=== PATIENT | male | born 1950 | race Caucasian/White ===

== ENCOUNTER 2022-04-03 14:39 | Inpatient (IN) | payer MEDICARE, BC, OTHER ==
[~2022-04-03] VITALS: Ht 167.6 cm; Wt 71.1 kg
[2022-04-03 14:30] VITALS: BP 168/78
[2022-04-03] MEDS ORDERED: MIRALAX *UNIT DOSE* 17GM PACKET PO PRN (14:40)
[2022-04-03] MEDS ORDERED: ACETAMINOPHEN 325 MG/10.15 ML UDC PO PRN (14:40)
[2022-04-03] MEDS ORDERED: LIDOCAINE 5% OINT 30GM TUBE TOP PRN (16:25)
[2022-04-03] MEDS ORDERED: CLOP75TA2 PO (17:05)
[2022-04-03] MEDS ORDERED: GLIP5TAB8 PO (17:05)
[2022-04-03] MEDS ORDERED: ASPI81CH48 PO (17:05)
[2022-04-03] MEDS ORDERED: ATOR40TA75 PO (17:05)
[2022-04-03] MEDS ORDERED: LIAL1.2T PO (17:05)
[2022-04-03] MEDS ORDERED: MESA50SU PR (17:05)
[2022-04-03] MEDS ORDERED: TAMS1CAP17 PO (17:05)
[2022-04-03] MEDS ORDERED: LOSA100T45 PO (17:05)
[2022-04-03] MEDS ORDERED: TRAD5TAB PO (17:05)
[2022-04-03] MEDS ORDERED: ATEN50TA2 PO (17:05)
[2022-04-03] MEDS ORDERED: VITMTA PO (17:05)
[2022-04-03] MEDS ORDERED: ACET1TAB55 PO (17:05)
[2022-04-03] MEDS ORDERED: KEPP1TAB PO (17:05)
[2022-04-03] MEDS ORDERED: VICT18IN SC (17:05)
[2022-04-03] MEDS ORDERED: DIPH25CA32 PO (17:05)
[2022-04-03] MEDS ORDERED: HOME MED LIST COMPLETE! XX SCH (17:10)
[2022-04-03 18:23] LABS: APPEARANCE, URINE MANUAL CLEAR (CLEAR); COLOR, URINE MANUAL LT YELLOW (YELLOW)
[2022-04-03 18:24] LABS: BILIRUBIN, URINE MANUAL NEGATIVE (NEGATIVE); BLOOD URINE MANUAL NEGATIVE (NEGATIVE); GLUCOSE, URINE (UA) MANUAL 1+(100 MG/DL) mg/dL (NEGATIVE); KETONE, URINE MANUAL NEGATIVE (NEGATIVE); LEUKOCYTE ESTERASE, URINE MAN NEGATIVE (NEGATIVE); NITRITE, URINE MANUAL NEGATIVE (NEGATIVE); PROTEIN, URINE MANUAL NEGATIVE (NEGATIVE); SPECIFIC GRAVITY,URINE MANUAL 1.005 (1.002-1.035); UROBILINOGEN, URINE MANUAL NORMAL (NORMAL)
[2022-04-03 20:27] VITALS: BP 138/78
[2022-04-03] MEDS ORDERED: diphenhydrAMINE 25MG CAP PO SCH (21:00)
[2022-04-03] MEDS ORDERED: MESALAMINE 1,000 MG SUPP PR SCH (21:00)
[2022-04-03] MEDS ORDERED: GLUCAGON INJ 1MG VIAL SC PRN (21:55)
[2022-04-03] MEDS ORDERED: DEXTROSE 50% 50 ML SYRINGE IV PRN (21:55)
[2022-04-03] MEDS ORDERED: GLUCOSE 4GM CHEW TABLET PO PRN (21:55)
[2022-04-03] MEDS: levETIRAcetam 250MG TABLET (KEPPRA) PO SCH (22:45)
[2022-04-03] MEDS: INSULIN LISPRO (NovoLOG) PER UNIT SC SCH (22:47)
[2022-04-04 05:51] VITALS: BP 168/74
[2022-04-04] MEDS: CLOPIDOGREL 75 MG TAB PO SCH (09:02)
[2022-04-04] MEDS: TAMSULOSIN 0.4 MG CAP PO SCH (09:02)
[2022-04-04] MEDS: levETIRAcetam 250MG TABLET (KEPPRA) PO SCH ×2 (09:02→20:11)
[2022-04-04] MEDS: PANTOPRAZOLE 40MG TAB (PROTONIX) PO SCH (09:02)
[2022-04-04] MEDS: LOSARTAN 50MG TABLET PO SCH (09:02)
[2022-04-04] MEDS: MULTIVITAMINS/MINERALS THERAP 1 TAB PO SCH (09:03)
[2022-04-04] MEDS: INSULIN LISPRO (NovoLOG) PER UNIT SC SCH ×5 (09:03→20:10)
[2022-04-04] MEDS: ATORVASTATIN 20 MG TAB PO SCH (09:03)
[2022-04-04] MEDS: ASPIRIN 81 MG CHEW TABLET PO SCH (09:03)
[2022-04-04] MEDS: atenoloL 50 MG TAB PO SCH (09:03)
[2022-04-04] MEDS: glipiZIDE (GLUCOTROL) 5 MG TAB PO SCH ×2 (09:04→17:33)
[2022-04-04 09:43] LABS: BASO # 0.2 10^3/uL (0.0-0.2); BASO % 1.1 % (0.0-1.0); EOS # 0.9 10^3/uL (0.0-0.5); EOS % 5.3 % (0.0-3.0); HEMATOCRIT 45.5 % (42.0-52.0); HEMOGLOBIN 14.3 g/dl (13.5-17.5); LYMPH # 3.3 10^3/uL (1.5-5.0); LYMPH % 19.9 % (24.0-44.0); MEAN CORPUSCULAR HEMOGLOBIN 29.8 pg (27.0-33.0); MEAN CORPUSCULAR HGB CONC 31.4 g/dl (32.0-36.5); MEAN CORPUSCULAR VOLUME 94.8 fl (80.0-96.0); MONO % 9.9 % (2.0-8.0); NEUTROPHILS % 60.4 % (36.0-66.0); PLATELET COUNT, AUTOMATED 459 10^3/uL (150-450); WHITE BLOOD COUNT 16.6 10^3/uL (4.0-10.0)
[2022-04-04 09:58] LABS: HEMOGLOBIN A1c 6.9 %
[2022-04-04 10:36] LABS: ALBUMIN 3.2 GM/DL (3.2-5.2); ALT/SGPT 195 U/L (12-78); BILIRUBIN,TOTAL 0.7 MG/DL (0.2-1.0); BLOOD UREA NITROGEN 18 MG/DL (7-18); CALCIUM LEVEL 9.2 MG/DL (8.8-10.2); CARBON DIOXIDE LEVEL 29 MEQ/L (21-32); CHLORIDE LEVEL 102 MEQ/L (98-107); CREATININE FOR GFR 0.92 MG/DL (0.70-1.30); GLOMERULAR FILTRATION RATE > 60.0 (>49); GLUCOSE, FASTING 143 MG/DL (70-100); MAGNESIUM LEVEL 2.1 MG/DL (1.8-2.4); POTASSIUM SERUM 4.1 MEQ/L (3.5-5.1); SODIUM LEVEL 136 MEQ/L (136-145); TOTAL PROTEIN 7.1 GM/DL (6.4-8.2)
[2022-04-04 11:14] LABS: MONO # 1.6 10^3/uL (0.0-0.8)
[2022-04-04 13:09] LABS: HEPATITIS B SURFACE ANTIGEN NEGATIVE (NEGATIVE)
[2022-04-04 13:19] LABS: HEPATITIS C VIRUS ABY INDEX 0.1 INDEX (<0.8)
[2022-04-04 13:20] LABS: HEPATITIS B CORE ANTIBODY IGM NEGATIVE (NEGATIVE)
[2022-04-04 14:00] VITALS: BP 160/78
[2022-04-04] MEDS: MESALAMINE 400 MG CAPSULE DELAYED RELEASE (DELZICOL) PO SCH (17:33)
[2022-04-04 20:00] VITALS: BP 150/82
[2022-04-04] MEDS: diphenhydrAMINE 25MG CAP PO SCH (20:11)
[2022-04-05] MEDS: LIDOCAINE 2% 5ML JELLY UROJET TOP PRN (00:32)
[2022-04-05 06:00] VITALS: BP 140/82
[2022-04-05] MEDS: glipiZIDE (GLUCOTROL) 5 MG TAB PO SCH ×2 (09:32→17:35)
[2022-04-05] MEDS: ASPIRIN 81 MG CHEW TABLET PO SCH (09:32)
[2022-04-05] MEDS: ATORVASTATIN 20 MG TAB PO SCH (09:32)
[2022-04-05] MEDS: CLOPIDOGREL 75 MG TAB PO SCH (09:32)
[2022-04-05] MEDS: TAMSULOSIN 0.4 MG CAP PO SCH (09:33)
[2022-04-05] MEDS: MULTIVITAMINS/MINERALS THERAP 1 TAB PO SCH (09:33)
[2022-04-05] MEDS: LOSARTAN 50MG TABLET PO SCH (09:33)
[2022-04-05] MEDS: PANTOPRAZOLE 40MG TAB (PROTONIX) PO SCH (09:33)
[2022-04-05] MEDS: atenoloL 50 MG TAB PO SCH (09:33)
[2022-04-05] MEDS: levETIRAcetam 250MG TABLET (KEPPRA) PO SCH ×2 (09:33→20:16)
[2022-04-05] MEDS: INSULIN LISPRO (NovoLOG) PER UNIT SC SCH ×4 (09:35→20:17)
[2022-04-05 14:00] VITALS: BP 163/76
[2022-04-05] MEDS: MESALAMINE 400 MG CAPSULE DELAYED RELEASE (DELZICOL) PO SCH (17:35)
[2022-04-05 20:00] VITALS: BP 138/74
[2022-04-05] MEDS: diphenhydrAMINE 25MG CAP PO SCH (20:16)
[2022-04-06 06:00] VITALS: BP 150/82
[2022-04-06 06:17] LABS: HEMATOCRIT 41.2 % (42.0-52.0); HEMOGLOBIN 13.5 g/dl (13.5-17.5); MEAN CORPUSCULAR HEMOGLOBIN 30.5 pg (27.0-33.0); MEAN CORPUSCULAR HGB CONC 32.8 g/dl (32.0-36.5); PLATELET COUNT, AUTOMATED 482 10^3/uL (150-450); RED BLOOD COUNT 4.43 10^6/uL (4.30-6.10); WHITE BLOOD COUNT 16.6 10^3/uL (4.0-10.0)
[2022-04-06 06:53] LABS: ALBUMIN 3.1 GM/DL (3.2-5.2); ALT/SGPT 130 U/L (12-78); BILIRUBIN,TOTAL 0.6 MG/DL (0.2-1.0); BLOOD UREA NITROGEN 16 MG/DL (7-18); CALCIUM LEVEL 9.3 MG/DL (8.8-10.2); CARBON DIOXIDE LEVEL 26 MEQ/L (21-32); CHLORIDE LEVEL 104 MEQ/L (98-107); CREATININE FOR GFR 0.93 MG/DL (0.70-1.30); GLOMERULAR FILTRATION RATE > 60.0 (>49); GLUCOSE, FASTING 141 MG/DL (70-100); POTASSIUM SERUM 4.5 MEQ/L (3.5-5.1); SODIUM LEVEL 136 MEQ/L (136-145)
[2022-04-06] MEDS: ASPIRIN 81 MG CHEW TABLET PO SCH (08:45)
[2022-04-06] MEDS: levETIRAcetam 250MG TABLET (KEPPRA) PO SCH ×2 (08:45→20:24)
[2022-04-06] MEDS: ATORVASTATIN 20 MG TAB PO SCH (08:46)
[2022-04-06] MEDS: PANTOPRAZOLE 40MG TAB (PROTONIX) PO SCH (08:46)
[2022-04-06] MEDS: CLOPIDOGREL 75 MG TAB PO SCH (08:46)
[2022-04-06] MEDS: glipiZIDE (GLUCOTROL) 5 MG TAB PO SCH ×2 (08:46→16:59)
[2022-04-06] MEDS: MULTIVITAMINS/MINERALS THERAP 1 TAB PO SCH (08:46)
[2022-04-06] MEDS: TAMSULOSIN 0.4 MG CAP PO SCH (08:46)
[2022-04-06] MEDS: LOSARTAN 50MG TABLET PO SCH (08:47)
[2022-04-06] MEDS: atenoloL 50 MG TAB PO SCH (08:47)
[2022-04-06] MEDS: INSULIN LISPRO (NovoLOG) PER UNIT SC SCH ×4 (08:49→20:25)
[2022-04-06 14:30] VITALS: BP 150/60
[2022-04-06] MEDS: MESALAMINE 400 MG CAPSULE DELAYED RELEASE (DELZICOL) PO SCH (16:59)
[2022-04-06 19:46] VITALS: BP 168/74
[2022-04-06] MEDS: diphenhydrAMINE 25MG CAP PO SCH (20:24)
[2022-04-06 21:20] VITALS: BP 150/88
[2022-04-07 06:10] VITALS: BP 148/78
[2022-04-07] MEDS: TAMSULOSIN 0.4 MG CAP PO SCH (09:15)
[2022-04-07] MEDS: MULTIVITAMINS/MINERALS THERAP 1 TAB PO SCH (09:15)
[2022-04-07] MEDS: levETIRAcetam 250MG TABLET (KEPPRA) PO SCH ×2 (09:15→20:48)
[2022-04-07] MEDS: CLOPIDOGREL 75 MG TAB PO SCH (09:15)
[2022-04-07] MEDS: atenoloL 50 MG TAB PO SCH (09:15)
[2022-04-07] MEDS: PANTOPRAZOLE 40MG TAB (PROTONIX) PO SCH (09:15)
[2022-04-07] MEDS: glipiZIDE (GLUCOTROL) 5 MG TAB PO SCH ×2 (09:16→17:34)
[2022-04-07] MEDS: ASPIRIN 81 MG CHEW TABLET PO SCH (09:16)
[2022-04-07] MEDS: LOSARTAN 50MG TABLET PO SCH (09:16)
[2022-04-07] MEDS: INSULIN LISPRO (NovoLOG) PER UNIT SC SCH ×4 (09:17→20:48)
[2022-04-07] MEDS: ATORVASTATIN 20 MG TAB PO SCH (09:17)
[2022-04-07] MEDS: PHENAZOPYRIDINE 100 MG TAB PO SCH ×2 (12:46→20:47)
[2022-04-07 14:00] VITALS: BP 151/78
[2022-04-07] MEDS ORDERED: SODIUM CHLORIDE NASAL 0.65% SPRAY BTL (OCEAN) PRN (16:45)
[2022-04-07] MEDS: MESALAMINE 400 MG CAPSULE DELAYED RELEASE (DELZICOL) PO SCH (17:34)
[2022-04-07 20:41] VITALS: BP 158/78
[2022-04-07] MEDS: diphenhydrAMINE 25MG CAP PO SCH (20:47)
[2022-04-08] MEDS: LIDOCAINE 2% 5ML JELLY UROJET TOP PRN (01:00)
[2022-04-08 05:34] VITALS: BP 156/80
[2022-04-08 05:57] LABS: BASO # 0.1 10^3/uL (0.0-0.2); BASO % 0.8 % (0.0-1.0); EOS # 0.3 10^3/uL (0.0-0.5); EOS % 2.7 % (0.0-3.0); HEMATOCRIT 39.4 % (42.0-52.0); HEMOGLOBIN 12.9 g/dl (13.5-17.5); LYMPH # 1.8 10^3/uL (1.5-5.0); MEAN CORPUSCULAR HEMOGLOBIN 30.1 pg (27.0-33.0); MEAN CORPUSCULAR HGB CONC 32.7 g/dl (32.0-36.5); MEAN CORPUSCULAR VOLUME 92.1 fl (80.0-96.0); MONO % 15.6 % (2.0-8.0); NEUTROPHILS # 8.5 10^3/uL (1.5-8.5); NEUTROPHILS % 65.9 % (36.0-66.0); PLATELET COUNT, AUTOMATED 445 10^3/uL (150-450); RED BLOOD COUNT 4.28 10^6/uL (4.30-6.10); WHITE BLOOD COUNT 12.8 10^3/uL (4.0-10.0)
[2022-04-08] MEDS: INSULIN LISPRO (NovoLOG) PER UNIT SC SCH ×4 (09:15→21:00)
[2022-04-08] MEDS: ASPIRIN 81 MG CHEW TABLET PO SCH (09:16)
[2022-04-08] MEDS: PHENAZOPYRIDINE 100 MG TAB PO SCH ×2 (09:16→21:43)
[2022-04-08] MEDS: TAMSULOSIN 0.4 MG CAP PO SCH (09:16)
[2022-04-08] MEDS: CEPACOL LOZENGE PO PRN ×2 (09:16→21:43)
[2022-04-08] MEDS: CLOPIDOGREL 75 MG TAB PO SCH (09:16)
[2022-04-08] MEDS: levETIRAcetam 250MG TABLET (KEPPRA) PO SCH ×2 (09:16→21:43)
[2022-04-08] MEDS: glipiZIDE (GLUCOTROL) 5 MG TAB PO SCH ×2 (09:16→17:08)
[2022-04-08] MEDS: MULTIVITAMINS/MINERALS THERAP 1 TAB PO SCH (09:16)
[2022-04-08] MEDS: PANTOPRAZOLE 40MG TAB (PROTONIX) PO SCH (09:16)
[2022-04-08] MEDS: ATORVASTATIN 20 MG TAB PO SCH (09:16)
[2022-04-08] MEDS: atenoloL 50 MG TAB PO SCH (09:17)
[2022-04-08] MEDS: LOSARTAN 50MG TABLET PO SCH (09:17)
[2022-04-08 14:00] VITALS: BP 133/62
[2022-04-08] MEDS: MESALAMINE 400 MG CAPSULE DELAYED RELEASE (DELZICOL) PO SCH (17:09)
[2022-04-08 20:30] VITALS: BP 140/78
[2022-04-08] MEDS: diphenhydrAMINE 25MG CAP PO SCH (21:43)
[2022-04-09] MEDS: LIDOCAINE 2% 5ML JELLY UROJET TOP PRN ×3 (01:00→22:04)
[2022-04-09 05:28] VITALS: BP 152/74
[2022-04-09] MEDS ORDERED: ALBUTEROL 90 MCG/ACT 8GM HFA INHALER INH PRN (07:00)
[2022-04-09] MEDS ORDERED: methylPREDNISolone 125MG 2ML VIAL IV PRN (07:01)
[2022-04-09] MEDS ORDERED: EPINEPHrine INJ 1 MG/ML 1ML AMP IM PRN (07:01)
[2022-04-09] MEDS ORDERED: ALBUTEROL SULFATE 2.5 MG/0.5 ML INH NEB SOLN INH PRN (07:01)
[2022-04-09] MEDS ORDERED: diphenhydrAMINE 50MG/ML VIAL (J1200) IV PRN (07:01)
[2022-04-09] MEDS: LOSARTAN 50MG TABLET PO SCH (08:15)
[2022-04-09] MEDS: PANTOPRAZOLE 40MG TAB (PROTONIX) PO SCH (08:15)
[2022-04-09] MEDS: INSULIN LISPRO (NovoLOG) PER UNIT SC SCH ×4 (08:15→20:27)
[2022-04-09] MEDS: ASPIRIN 81 MG CHEW TABLET PO SCH (08:16)
[2022-04-09] MEDS: TAMSULOSIN 0.4 MG CAP PO SCH (08:16)
[2022-04-09] MEDS: levETIRAcetam 250MG TABLET (KEPPRA) PO SCH ×2 (08:16→20:26)
[2022-04-09] MEDS: atenoloL 50 MG TAB PO SCH (08:16)
[2022-04-09] MEDS: ATORVASTATIN 20 MG TAB PO SCH (08:16)
[2022-04-09] MEDS: CLOPIDOGREL 75 MG TAB PO SCH (08:16)
[2022-04-09] MEDS: MULTIVITAMINS/MINERALS THERAP 1 TAB PO SCH (08:16)
[2022-04-09] MEDS: glipiZIDE (GLUCOTROL) 5 MG TAB PO SCH ×2 (08:16→17:14)
[2022-04-09] MEDS ORDERED: BEBTELOVIMAB 175MG 2ML VIAL (EUA) IV ONE (10:00)
[2022-04-09] MEDS ORDERED: NS 1,000 ML IV SCH (10:00)
[2022-04-09 11:10] VITALS: BP 163/79
[2022-04-09 11:36] VITALS: BP 163/79
[2022-04-09] MEDS: NITROFURANTOIN (MACROBID) 100 MG CAP PO SCH ×2 (12:24→20:27)
[2022-04-09 13:24] VITALS: BP 142/64
[2022-04-09 14:00] VITALS: BP 131/63
[2022-04-09] MEDS: ALBUTEROL 90 MCG/ACT 8GM HFA INHALER INH SCH ×2 (16:00→19:49)
[2022-04-09] MEDS: MESALAMINE 400 MG CAPSULE DELAYED RELEASE (DELZICOL) PO SCH (17:14)
[2022-04-09 20:00] VITALS: BP 114/66
[2022-04-09] MEDS: diphenhydrAMINE 25MG CAP PO SCH (20:26)
[2022-04-10] MEDS: ALBUTEROL 90 MCG/ACT 8GM HFA INHALER INH SCH ×6 (01:00→20:20)
[2022-04-10 06:00] VITALS: BP 148/73
[2022-04-10] MEDS: MULTIVITAMINS/MINERALS THERAP 1 TAB PO SCH (08:20)
[2022-04-10] MEDS: atenoloL 50 MG TAB PO SCH (08:20)
[2022-04-10] MEDS: glipiZIDE (GLUCOTROL) 5 MG TAB PO SCH ×2 (08:20→17:28)
[2022-04-10] MEDS: TAMSULOSIN 0.4 MG CAP PO SCH (08:21)
[2022-04-10] MEDS: INSULIN LISPRO (NovoLOG) PER UNIT SC SCH ×4 (08:21→20:32)
[2022-04-10] MEDS: levETIRAcetam 250MG TABLET (KEPPRA) PO SCH ×2 (08:21→20:31)
[2022-04-10] MEDS: LOSARTAN 50MG TABLET PO SCH (08:21)
[2022-04-10] MEDS: ASPIRIN 81 MG CHEW TABLET PO SCH (08:21)
[2022-04-10] MEDS: PANTOPRAZOLE 40MG TAB (PROTONIX) PO SCH (08:22)
[2022-04-10] MEDS: NITROFURANTOIN (MACROBID) 100 MG CAP PO SCH ×2 (08:22→20:30)
[2022-04-10] MEDS: CLOPIDOGREL 75 MG TAB PO SCH (08:22)
[2022-04-10 08:27] LABS: BASO # 0.1 10^3/uL (0.0-0.2); BASO % 0.7 % (0.0-1.0); EOS # 0.5 10^3/uL (0.0-0.5); EOS % 5.2 % (0.0-3.0); HEMATOCRIT 43.5 % (42.0-52.0); HEMOGLOBIN 13.9 g/dl (13.5-17.5); LYMPH # 2.2 10^3/uL (1.5-5.0); MONO # 0.9 10^3/uL (0.0-0.8); MONO % 9.4 % (2.0-8.0); NEUTROPHILS # 5.8 10^3/uL (1.5-8.5); PLATELET COUNT, AUTOMATED 514 10^3/uL (150-450); RED BLOOD COUNT 4.63 10^6/uL (4.30-6.10); WHITE BLOOD COUNT 9.5 10^3/uL (4.0-10.0)
[2022-04-10 09:05] LABS: ALBUMIN 3.3 GM/DL (3.2-5.2); ALT/SGPT 91 U/L (12-78); BILIRUBIN,TOTAL 0.5 MG/DL (0.2-1.0); BLOOD UREA NITROGEN 16 MG/DL (7-18); CALCIUM LEVEL 9.8 MG/DL (8.8-10.2); CARBON DIOXIDE LEVEL 26 MEQ/L (21-32); CHLORIDE LEVEL 101 MEQ/L (98-107); CREATININE FOR GFR 0.99 MG/DL (0.70-1.30); GLOMERULAR FILTRATION RATE > 60.0 (>49); GLUCOSE, FASTING 201 MG/DL (70-100); POTASSIUM SERUM 4.8 MEQ/L (3.5-5.1); SODIUM LEVEL 132 MEQ/L (136-145); TOTAL PROTEIN 7.7 GM/DL (6.4-8.2)
[2022-04-10 14:00] VITALS: BP 166/74
[2022-04-10] MEDS: SODIUM CHLORIDE 1 GM TAB PO SCH ×2 (17:27→20:30)
[2022-04-10] MEDS: MESALAMINE 400 MG CAPSULE DELAYED RELEASE (DELZICOL) PO SCH (17:28)
[2022-04-10 20:00] VITALS: BP 148/70
[2022-04-10] MEDS: diphenhydrAMINE 25MG CAP PO SCH (20:30)
[2022-04-10] MEDS: SIMVASTATIN 10 MG TAB PO SCH (20:31)
[2022-04-11] MEDS: ALBUTEROL 90 MCG/ACT 8GM HFA INHALER INH SCH ×6 (01:00→21:00)
[2022-04-11 06:00] VITALS: BP 156/79
[2022-04-11 07:06] LABS: BLOOD UREA NITROGEN 15 MG/DL (7-18); CALCIUM LEVEL 9.4 MG/DL (8.8-10.2); CARBON DIOXIDE LEVEL 28 MEQ/L (21-32); CHLORIDE LEVEL 103 MEQ/L (98-107); CREATININE FOR GFR 0.92 MG/DL (0.70-1.30); GLOMERULAR FILTRATION RATE > 60.0 (>49); GLUCOSE, FASTING 183 MG/DL (70-100); POTASSIUM SERUM 4.6 MEQ/L (3.5-5.1); SODIUM LEVEL 135 MEQ/L (136-145)
[2022-04-11] MEDS: glipiZIDE (GLUCOTROL) 5 MG TAB PO SCH ×2 (09:43→17:19)
[2022-04-11] MEDS: SODIUM CHLORIDE 1 GM TAB PO SCH (09:43)
[2022-04-11] MEDS: PANTOPRAZOLE 40MG TAB (PROTONIX) PO SCH (09:44)
[2022-04-11] MEDS: ASPIRIN 81 MG CHEW TABLET PO SCH (09:44)
[2022-04-11] MEDS: atenoloL 50 MG TAB PO SCH (09:44)
[2022-04-11] MEDS: NITROFURANTOIN (MACROBID) 100 MG CAP PO SCH ×2 (09:44→21:36)
[2022-04-11] MEDS: MULTIVITAMINS/MINERALS THERAP 1 TAB PO SCH (09:44)
[2022-04-11] MEDS: LOSARTAN 50MG TABLET PO SCH (09:44)
[2022-04-11] MEDS: CLOPIDOGREL 75 MG TAB PO SCH (09:44)
[2022-04-11] MEDS: TAMSULOSIN 0.4 MG CAP PO SCH (09:44)
[2022-04-11] MEDS: levETIRAcetam 250MG TABLET (KEPPRA) PO SCH ×2 (09:44→21:36)
[2022-04-11] MEDS: INSULIN LISPRO (NovoLOG) PER UNIT SC SCH ×4 (09:47→21:00)
[2022-04-11 14:00] VITALS: BP 139/68
[2022-04-11] MEDS: MESALAMINE 400 MG CAPSULE DELAYED RELEASE (DELZICOL) PO SCH (17:51)
[2022-04-11 20:00] VITALS: BP 172/79
[2022-04-11] MEDS: SIMVASTATIN 10 MG TAB PO SCH (21:36)
[2022-04-11] MEDS: diphenhydrAMINE 25MG CAP PO SCH (21:36)
[2022-04-11 22:08] VITALS: BP 138/78
[2022-04-12] MEDS: ALBUTEROL 90 MCG/ACT 8GM HFA INHALER INH SCH ×5 (00:10→20:17)
[2022-04-12 06:00] VITALS: BP 142/76
[2022-04-12] MEDS: MULTIVITAMINS/MINERALS THERAP 1 TAB PO SCH (08:52)
[2022-04-12] MEDS: TAMSULOSIN 0.4 MG CAP PO SCH (08:52)
[2022-04-12] MEDS: CLOPIDOGREL 75 MG TAB PO SCH (08:52)
[2022-04-12] MEDS: PANTOPRAZOLE 40MG TAB (PROTONIX) PO SCH (08:52)
[2022-04-12] MEDS: NITROFURANTOIN (MACROBID) 100 MG CAP PO SCH ×2 (08:52→21:00)
[2022-04-12] MEDS: INSULIN LISPRO (NovoLOG) PER UNIT SC SCH ×4 (08:52→21:00)
[2022-04-12] MEDS: glipiZIDE (GLUCOTROL) 5 MG TAB PO SCH ×2 (08:53→17:14)
[2022-04-12] MEDS: ASPIRIN 81 MG CHEW TABLET PO SCH (08:53)
[2022-04-12] MEDS: LOSARTAN 50MG TABLET PO SCH (08:53)
[2022-04-12] MEDS: atenoloL 50 MG TAB PO SCH (08:54)
[2022-04-12] MEDS: levETIRAcetam 250MG TABLET (KEPPRA) PO SCH ×2 (08:54→21:02)
[2022-04-12 15:05] VITALS: BP 133/64
[2022-04-12] MEDS: MESALAMINE 400 MG CAPSULE DELAYED RELEASE (DELZICOL) PO SCH (17:15)
[2022-04-12 20:00] VITALS: BP 150/72
[2022-04-12] MEDS: SIMVASTATIN 10 MG TAB PO SCH (21:00)
[2022-04-12] MEDS: diphenhydrAMINE 25MG CAP PO SCH (21:00)
[2022-04-13] MEDS: ALBUTEROL 90 MCG/ACT 8GM HFA INHALER INH SCH ×6 (01:00→21:04)
[2022-04-13 06:00] VITALS: BP 153/74
[2022-04-13] MEDS: INSULIN LISPRO (NovoLOG) PER UNIT SC SCH ×4 (07:43→21:00)
[2022-04-13] MEDS: NITROFURANTOIN (MACROBID) 100 MG CAP PO SCH ×2 (07:43→22:04)
[2022-04-13] MEDS: levETIRAcetam 250MG TABLET (KEPPRA) PO SCH ×2 (07:43→22:04)
[2022-04-13] MEDS: PANTOPRAZOLE 40MG TAB (PROTONIX) PO SCH (07:43)
[2022-04-13] MEDS: TAMSULOSIN 0.4 MG CAP PO SCH (07:43)
[2022-04-13] MEDS: LOSARTAN 50MG TABLET PO SCH (07:44)
[2022-04-13] MEDS: atenoloL 50 MG TAB PO SCH (07:44)
[2022-04-13] MEDS: CLOPIDOGREL 75 MG TAB PO SCH (07:44)
[2022-04-13] MEDS: ASPIRIN 81 MG CHEW TABLET PO SCH (07:44)
[2022-04-13] MEDS: MULTIVITAMINS/MINERALS THERAP 1 TAB PO SCH (07:44)
[2022-04-13] MEDS: glipiZIDE (GLUCOTROL) 5 MG TAB PO SCH ×2 (07:45→17:09)
[2022-04-13 14:00] VITALS: BP 129/61
[2022-04-13] MEDS: MESALAMINE 400 MG CAPSULE DELAYED RELEASE (DELZICOL) PO SCH (17:10)
[2022-04-13 20:39] VITALS: BP 138/72
[2022-04-13] MEDS: diphenhydrAMINE 25MG CAP PO SCH (22:04)
[2022-04-13] MEDS: SIMVASTATIN 10 MG TAB PO SCH (22:04)
[2022-04-14] MEDS: ALBUTEROL 90 MCG/ACT 8GM HFA INHALER INH SCH ×5 (01:00→20:10)
[2022-04-14 06:00] VITALS: BP 126/68
[2022-04-14 06:39] LABS: HEMATOCRIT 42.8 % (42.0-52.0); HEMOGLOBIN 13.9 g/dl (13.5-17.5); MEAN CORPUSCULAR HEMOGLOBIN 30.1 pg (27.0-33.0); MEAN CORPUSCULAR HGB CONC 32.5 g/dl (32.0-36.5); MEAN CORPUSCULAR VOLUME 92.6 fl (80.0-96.0); PLATELET COUNT, AUTOMATED 608 10^3/uL (150-450); RED BLOOD COUNT 4.62 10^6/uL (4.30-6.10)
[2022-04-14 07:24] LABS: ALBUMIN 3.3 GM/DL (3.2-5.2); ALT/SGPT 58 U/L (12-78); BILIRUBIN,TOTAL 0.8 MG/DL (0.2-1.0); BLOOD UREA NITROGEN 16 MG/DL (7-18); CALCIUM LEVEL 9.6 MG/DL (8.8-10.2); CARBON DIOXIDE LEVEL 28 MEQ/L (21-32); CHLORIDE LEVEL 103 MEQ/L (98-107); CREATININE FOR GFR 0.99 MG/DL (0.70-1.30); GLOMERULAR FILTRATION RATE > 60.0 (>49); GLUCOSE, FASTING 182 MG/DL (70-100); POTASSIUM SERUM 4.8 MEQ/L (3.5-5.1); SODIUM LEVEL 136 MEQ/L (136-145); TOTAL PROTEIN 7.5 GM/DL (6.4-8.2)
[2022-04-14] MEDS: LOSARTAN 50MG TABLET PO SCH (08:23)
[2022-04-14] MEDS: glipiZIDE (GLUCOTROL) 5 MG TAB PO SCH ×2 (08:24→17:06)
[2022-04-14] MEDS: CLOPIDOGREL 75 MG TAB PO SCH (08:24)
[2022-04-14] MEDS: atenoloL 50 MG TAB PO SCH (08:24)
[2022-04-14] MEDS: TAMSULOSIN 0.4 MG CAP PO SCH (08:24)
[2022-04-14] MEDS: ASPIRIN 81 MG CHEW TABLET PO SCH (08:24)
[2022-04-14] MEDS: PANTOPRAZOLE 40MG TAB (PROTONIX) PO SCH (08:24)
[2022-04-14] MEDS: INSULIN LISPRO (NovoLOG) PER UNIT SC SCH ×4 (08:24→20:02)
[2022-04-14] MEDS: NITROFURANTOIN (MACROBID) 100 MG CAP PO SCH ×2 (08:25→20:13)
[2022-04-14] MEDS: MULTIVITAMINS/MINERALS THERAP 1 TAB PO SCH (08:25)
[2022-04-14] MEDS: levETIRAcetam 250MG TABLET (KEPPRA) PO SCH ×2 (08:25→20:13)
[2022-04-14 14:00] VITALS: BP 130/59
[2022-04-14 15:12] LABS: APPEARANCE, URINE MANUAL HAZY (CLEAR); COLOR, URINE MANUAL YELLOW (YELLOW)
[2022-04-14 15:13] LABS: SPECIFIC GRAVITY,URINE MANUAL 1.015 (1.002-1.035)
[2022-04-14 15:14] LABS: PROTEIN, URINE MANUAL TRACE mg/dL (NEGATIVE)
[2022-04-14 15:15] LABS: BILIRUBIN, URINE MANUAL NEGATIVE (NEGATIVE); BLOOD URINE MANUAL TRACE (NEGATIVE); GLUCOSE, URINE (UA) MANUAL 3+(500 MG/DL) mg/dL (NEGATIVE); KETONE, URINE MANUAL NEGATIVE (NEGATIVE); LEUKOCYTE ESTERASE, URINE MAN POSITIVE (NEGATIVE); NITRITE, URINE MANUAL NEGATIVE (NEGATIVE); UROBILINOGEN, URINE MANUAL NORMAL (NORMAL)
[2022-04-14 15:28] LABS: WBC, URINE TNTC /hpf (0-3)
[2022-04-14 15:29] LABS: BACTERIA, URINE LARGE AMOUNT; HYALINE CAST, URINE NONE SEEN /lpf (0-1); SQUAMOUS EPITHELIAL CELL URINE SMALL AMOUNT /hpf (SMALL AMT)
[2022-04-14] MEDS: MESALAMINE 400 MG CAPSULE DELAYED RELEASE (DELZICOL) PO SCH (17:06)
[2022-04-14 20:00] VITALS: BP 118/62
[2022-04-14] MEDS: diphenhydrAMINE 25MG CAP PO SCH (20:13)
[2022-04-14] MEDS: SIMVASTATIN 10 MG TAB PO SCH (20:13)
[2022-04-15] MEDS: ALBUTEROL 90 MCG/ACT 8GM HFA INHALER INH SCH ×4 (00:07→11:54)
[2022-04-15 05:29] VITALS: BP 138/74
[2022-04-15 06:00] VITALS: BP 138/74
[2022-04-15 07:43] LABS: BASO # 0.1 10^3/uL (0.0-0.2); BASO % 0.7 % (0.0-1.0); EOS # 0.4 10^3/uL (0.0-0.5); EOS % 4.3 % (0.0-3.0); HEMATOCRIT 42.1 % (42.0-52.0); HEMOGLOBIN 13.3 g/dl (13.5-17.5); LYMPH # 2.6 10^3/uL (1.5-5.0); LYMPH % 26.5 % (24.0-44.0); MEAN CORPUSCULAR HEMOGLOBIN 29.6 pg (27.0-33.0); MEAN CORPUSCULAR HGB CONC 31.6 g/dl (32.0-36.5); MEAN CORPUSCULAR VOLUME 93.6 fl (80.0-96.0); MONO # 0.8 10^3/uL (0.0-0.8); MONO % 8.5 % (2.0-8.0); NEUTROPHILS # 5.8 10^3/uL (1.5-8.5); NEUTROPHILS % 59.5 % (36.0-66.0); PLATELET COUNT, AUTOMATED 597 10^3/uL (150-450); WHITE BLOOD COUNT 9.8 10^3/uL (4.0-10.0)
[2022-04-15] MEDS ORDERED: NITR100C2 PO (09:01)
[2022-04-15] MEDS: PANTOPRAZOLE 40MG TAB (PROTONIX) PO SCH (09:10)
[2022-04-15] MEDS: MULTIVITAMINS/MINERALS THERAP 1 TAB PO SCH (09:10)
[2022-04-15] MEDS: glipiZIDE (GLUCOTROL) 5 MG TAB PO SCH (09:10)
[2022-04-15] MEDS: ASPIRIN 81 MG CHEW TABLET PO SCH (09:10)
[2022-04-15] MEDS: CLOPIDOGREL 75 MG TAB PO SCH (09:10)
[2022-04-15 09:11] VITALS: BP 138/74
[2022-04-15] MEDS: LOSARTAN 50MG TABLET PO SCH (09:11)
[2022-04-15] MEDS: NITROFURANTOIN (MACROBID) 100 MG CAP PO SCH (09:11)
[2022-04-15] MEDS: atenoloL 50 MG TAB PO SCH (09:11)
[2022-04-15] MEDS: TAMSULOSIN 0.4 MG CAP PO SCH (09:11)
[2022-04-15] MEDS: levETIRAcetam 250MG TABLET (KEPPRA) PO SCH (09:11)
[2022-04-15] MEDS: INSULIN LISPRO (NovoLOG) PER UNIT SC SCH ×2 (09:12→12:47)
[2022-04-15] MEDS ORDERED: SIMV10TA21 PO (12:16)
[2022-04-15] MEDS ORDERED: ATEN50TA2 PO (12:16)
[2022-04-15] MEDS ORDERED: FLOM0.4C39 PO (12:16)
[2022-04-15] MEDS ORDERED: KEPP250T5 PO (12:16)
[2022-04-15] MEDS ORDERED: COZA50TA PO (12:16)
[2022-04-15] MEDS ORDERED: GLIP5TAB8 PO (12:16)
== END 2022-04-15 12:50 | disposition home or self-care (01) | DRG 56 ==
LOC: M PM&R 14:39 → EDBD 14:39
PROVIDERS: ADMIT Physical Medicine & Rehabilitation; ATTEND Physical Medicine & Rehabilitation
DX: I69.352 Hemiplegia and hemiparesis following cerebral infarction affecting left dominant side (principal); U07.1 COVID-19; E87.1 Hypo-osmolality and hyponatremia; K50.90 Crohn's disease, unspecified, without complications; N39.0 Urinary tract infection, site not specified; G81.91 Hemiplegia, unspecified affecting right dominant side; R47.01 Aphasia; G40.909 Epilepsy, unspecified, not intractable, without status epilepticus; D72.829 Elevated white blood cell count, unspecified; I12.9 Hypertensive chronic kidney disease with stage 1 through stage 4 chronic kidney disease, or unspecified chronic kidney disease; N18.9 Chronic kidney disease, unspecified; I69.320 Aphasia following cerebral infarction; I69.321 Dysphasia following cerebral infarction; Z88.0 Allergy status to penicillin; E11.51 Type 2 diabetes mellitus with diabetic peripheral angiopathy without gangrene; E07.89 Other specified disorders of thyroid; E78.5 Hyperlipidemia, unspecified; Z79.4 Long term (current) use of insulin; N40.0 Benign prostatic hyperplasia without lower urinary tract symptoms; Z79.899 Other long term (current) drug therapy; Z79.82 Long term (current) use of aspirin; B95.8 Unspecified staphylococcus as the cause of diseases classified elsewhere; D64.9 Anemia, unspecified; R33.9 Retention of urine, unspecified; N31.9 Neuromuscular dysfunction of bladder, unspecified; R13.11 Dysphagia, oral phase; I65.22 Occlusion and stenosis of left carotid artery; J02.9 Acute pharyngitis, unspecified